=== PATIENT | male | born 1980 | race Two or more races ===

== ENCOUNTER 2023-08-19 19:05 | Emergency (ER) | payer OTHER ==
[~2023-08-19] VITALS: Ht 180.3 cm; Wt 95.2 kg
[2023-08-19 19:42] LABS: BASOPHILS ABSOLUTE AUTO 0.07 K/mm3 (0.00-0.23); BASOPHILS PERCENT AUTO 1 % (0-2); EOSINOPHILS ABSOLUTE AUTO 0.08 K/mm3 (0.00-0.68); EOSINOPHILS PERCENT AUTO 1 % (0-6); Hematocrit 49.8 % (37.0-53.0); Hemoglobin 18.2 g/dL (13.5-17.5); IMMATURE GRAN ABSOLUTE AUTO 0.04 K/mm3 (0.00-0.10); IMMATURE GRAN PERCENT AUTO 0 % (0-1); LYMPHOCYTES PERCENT AUTO 50 % (21-46); MONOCYTES ABSOLUTE AUTO 0.55 K/mm3 (0.16-1.47); MONOCYTES PERCENT AUTO 6 % (4-13); Mean Corpuscular HGB 31.1 pg (26.0-34.0); Mean Corpuscular HGB Conc 36.5 g/dL (31.5-36.5); Mean Corpuscular Volume 85 fL (80-100); Mean Platelet Volume 10.9 fL (9.1-12.4); NEUTROPHILS ABSOLUTE AUTO 3.93 K/mm3 (1.96-9.15); NEUTROPHILS PERCENT AUTO 42 % (41-73); Platelet Count 181 K/mm3 (150-400); RDW Coefficient Variation 12.6 % (11.7-14.2); RDW Standard Deviation 39.4 fL (35.1-46.3); Red Blood Cell Count 5.85 M/mm3 (4.30-5.90); White Blood Cell Count 9.37 K/mm3 (4.00-11.30)
[2023-08-19 20:19] LABS: Influenza A, PCR NEGATIVE (NEGATIVE); Influenza B, PCR NEGATIVE (NEGATIVE); Resp Syncytial Virus, PCR NEGATIVE (NEGATIVE); SARS-Cov-2 (COVID-19) PCR, MMC NEGATIVE (NEGATIVE)
[2023-08-19 20:33] LABS: Albumin, Blood 4.1 g/dL (3.4-5.0); Bilirubin, Total 0.7 mg/dL (0.1-1.0); Bun/Creatinine Ratio 23.1 (12.0-20.0); Creatinine, Blood 0.82 mg/dL (0.60-1.20); Potassium, Blood 3.9 mmol/L (3.5-5.5); Total Protein, Blood 8.1 g/dL (6.4-8.2)
[2023-08-20] MEDS ORDERED: CHLO25 PO (01:59)
[2023-08-20 02:00] VITALS: BP 122/97
== END 2023-08-20 02:09 | disposition home or self-care (01) ==
LOC: ER 19:05
PROVIDERS: Student in an Organized Health Care Education/Training Program
DX: K29.20 Alcoholic gastritis without bleeding (principal); F10.239 Alcohol dependence with withdrawal, unspecified; Y90.8 Blood alcohol level of 240 mg/100 ml or more
CPT/HCPCS: 0241U; 71046; 74177; 80053; 83690; 85025; 93005; 93010; 96374; 99284-25; A9270; J3360; J7121; Q9967

== ENCOUNTER 2023-12-02 16:24 | Inpatient (IN) | payer OTHER ==
[~2023-12-02] VITALS: Ht 180.3 cm; Wt 96.9 kg
[~2023-12-02 16:24] MED LIST: CHLO25 PO
[2023-12-02] MEDS ORDERED: NS 1,000 ML IV SCH ×3 (17:00→19:45)
[2023-12-02] MEDS ORDERED: Ondansetron HCl 2 MG / ML 2ML Vial IV ONE (17:05)
[2023-12-02 17:17] LABS: BASOPHILS ABSOLUTE AUTO 0.08 K/mm3 (0.00-0.23); BASOPHILS PERCENT AUTO 1 % (0-2); EOSINOPHILS ABSOLUTE AUTO 0.06 K/mm3 (0.00-0.68); EOSINOPHILS PERCENT AUTO 1 % (0-6); Hematocrit 49.1 % (37.0-53.0); Hemoglobin 17.8 g/dL (13.5-17.5); IMMATURE GRAN ABSOLUTE AUTO 0.01 K/mm3 (0.00-0.10); IMMATURE GRAN PERCENT AUTO 0 % (0-1); LYMPHOCYTES ABSOLUTE AUTO 1.43 K/mm3 (0.84-5.20); LYMPHOCYTES PERCENT AUTO 17 % (21-46); MONOCYTES ABSOLUTE AUTO 0.48 K/mm3 (0.16-1.47); MONOCYTES PERCENT AUTO 6 % (4-13); Mean Corpuscular HGB 31.1 pg (26.0-34.0); Mean Corpuscular HGB Conc 36.3 g/dL (31.5-36.5); Mean Corpuscular Volume 86 fL (80-100); Mean Platelet Volume 11.8 fL (9.1-12.4); NEUTROPHILS ABSOLUTE AUTO 6.37 K/mm3 (1.96-9.15); NEUTROPHILS PERCENT AUTO 76 % (41-73); Platelet Count 144 K/mm3 (150-400); RDW Standard Deviation 37.9 fL (35.1-46.3); Red Blood Cell Count 5.72 M/mm3 (4.30-5.90); White Blood Cell Count 8.43 K/mm3 (4.00-11.30)
[2023-12-02 17:49] LABS: Albumin/Globulin Ratio 1.2 (0.8-1.8); Bilirubin, Total 1.1 mg/dL (0.1-1.0); Bun/Creatinine Ratio 12.4 (12.0-20.0); Calcium, Blood 7.9 mg/dL (8.5-10.1); Creatinine, Blood 0.88 mg/dL (0.60-1.20); Globulin, Blood 3.2 g/dL (2.2-4.0); Potassium, Blood 3.9 mmol/L (3.5-5.5); Total Protein, Blood 7.2 g/dL (6.4-8.2)
[2023-12-02] MEDS ORDERED: Prochlorperazine Edisylate 10 mg Vial IV ONE (18:40)
[2023-12-02 18:55] LABS: International Normalized Ratio 2.45; Prothrombin Time Results 24.5 Sec (9.7-11.5)
[2023-12-02] MEDS ORDERED: ChlordiazePOXIDE 25 MG Cap PO PRN ×2 (18:55)
[2023-12-02] MEDS ORDERED: FentaNYL Citrate 50 MCG/ML 2 ML Injection IV PRN (18:55)
[2023-12-02] MEDS ORDERED: LORazepam 2 MG/ML 1ML Injection IV PRN ×2 (18:55)
[2023-12-02] MEDS ORDERED: LORazepam 2 MG/ML 1ML Injection IV ONE (19:00)
[2023-12-02] MEDS ORDERED: FentaNYL Citrate 50 MCG/ML 2 ML Injection IV ONE (19:00)
[2023-12-02] MEDS ORDERED: Nicotine 21 MG PATCH TOP ONE (19:15)
[2023-12-02 19:23] LABS: Thyroid Stimulating Hormone 0.832 uIU/mL (0.360-4.800)
[2023-12-02 19:28] LABS: U Amphetamine Screen Not Detected; U Barbituate Screen Not Detected; U Benzodiazapine Screen Not Detected; U Buprenorphine Screen Not Detected; U Cannabinoids Screen Not Detected; U Cocaine Screen Not Detected; U Methadone Screen Not Detected; U Methamphetamine Screen Not Detected; U Opiates Screen Not Detected; U Oxycodone Screen Not Detected; U Phencyclidine Screen Not Detected
[2023-12-02] MEDS ORDERED: Ondansetron HCl 2 MG / ML 2ML Vial IV PRN (19:45)
[2023-12-02] MEDS ORDERED: Pantoprazole Sodium 40 MG Injection IV SCH (20:00)
[2023-12-02 21:05] VITALS: BP 139/88
--- NOTE | 2023-12-02 21:50 | NUR ---
ARRIVAL TO UNIT AFTER RECEIVING REPORT FROM [facility] RN, PATIENT ARRIVED TO UNIT VIA ED [facility] AT APPROX 2100. PATIENT ABLE TO STAND AND AMBULATE FROM ED [facility] TO BED WITH SBA FROM STAFF FOR CORD, DEVICE MANAGEMENT. PATIENT ALERT AND ORIENTED X4. SOFT, SLURRED SPEECH NOTED. DIFFICULTY ANSWERING QUESTIONS, FOLLOWING CONVERSATION. SLIGHT VISIBLE TREMOR WITH REPORT OF MILD NAUSEA, HEADACHE. CIWA OF 6. ADMINISTERED 50MG PO LIBRIUM PER EMAR. PERRLA. MOVES ALL EXTREMITIES EQUALLY. PATIENT IS A CURRENT EVERYDAY 1/2PPD SMOKER. NICOTINE PATCH IN PLACE. EDUCATED ON FACILITY's IGNITION, SMOKING POLICY. PATIENT DENIES HAVING ANY LIGHTERS OR OTHER IGNITION SOURCES. TELEMETRY SHOWING SINUS 90s. BP STABLE, SBP 130s. DENIES CHEST PAIN, PRESSURE. CURRENTLY TOLERATING ROOM AIR, SATs >90%. ON 3L VIA NC AT ARRIVAL. RESPIRATIONS EVEN, UNLABORED. REPORTS DECREASED ABDOMINAL PAIN SINCE ARRIVAL TO ED. NORMOACTIVE BOWEL TONES AUSCULTATED. TOLERATING WATER WITH NO INCREASE IN NAUSEA OR EPISODE OF VOMITING. CALL LIGHT IN REACH. BED ALARM ON. SEIZURE PADS IN PLACE. IVF INFUSING PER EMAR.
[2023-12-02 23:38] VITALS: BP 137/89
[2023-12-03] MEDS ORDERED: Insulin Human Lispro 100 Units/ML 3ML Syringe SC SCH
[2023-12-03 03:48] VITALS: BP 138/90
[2023-12-03 03:59] LABS: Hematocrit 44.6 % (37.0-53.0); Mean Corpuscular HGB 31.3 pg (26.0-34.0); Mean Corpuscular HGB Conc 35.9 g/dL (31.5-36.5); Mean Corpuscular Volume 87 fL (80-100); Platelet Count 91 K/mm3 (150-400); RDW Coefficient Variation 11.9 % (11.7-14.2); RDW Standard Deviation 38.5 fL (35.1-46.3); Red Blood Cell Count 5.11 M/mm3 (4.30-5.90)
[2023-12-03 04:33] LABS: Magnesium, Blood 1.7 mg/dL (1.6-2.4)
[2023-12-03 04:36] LABS: Albumin, Blood 3.4 g/dL (3.4-5.0); Albumin/Globulin Ratio 1.4 (0.8-1.8); Bilirubin, Total 1.4 mg/dL (0.1-1.0); Calcium, Blood 7.3 mg/dL (8.5-10.1); Creatinine, Blood 0.8 mg/dL (0.60-1.20); Globulin, Blood 2.5 g/dL (2.2-4.0); Potassium, Blood 3.9 mmol/L (3.5-5.5); Total Protein, Blood 5.9 g/dL (6.4-8.2)
[2023-12-03 04:53] LABS: International Normalized Ratio 3.4; Prothrombin Time Results 33.3 Sec (9.7-11.5)
--- NOTE | 2023-12-03 05:28 | NUR ---
SHIFT SUMMARY NO ACUTE EVENTS SINCE ARRIVAL TO UNIT. PATIENT SLEPT THROUGHOUT SHIFT. EASILY AROUSABLE WITH VERBAL STIMULI. COOPERATIVE WITH CARE, COMMUNICATES NEEDS EFFECTIVELY. CIWAs 3-7. PATIENT REPORTING MILD HEADACHE, NAUSEA (NO VOMITING), AND EXPERIENCING MILD BUE TREMOR. MEDICATED PER EMAR WITH A TOTAL OF 75MG OF PO LIBRIUM. TELEMETRY SHOWING SINUS/SINUS TACH 90s-110s. BP STABLE. DENIES CHEST PAIN, PRESSURE. REMAINS ON ROOM AIR, SATs >90%. RESPIRATIONS EVEN, UNLABORED. DENIES INCREASED ABDOMINAL PAIN. UP TO RESTROOM TO VOID WITH SBA FROM STAFF. REPOSITIONS HIMSELF INDEPENDENTLY IN BED. NO BM THIS SHIFT. CALL LIGHT IN REACH. BED ALARM ON. WILL CONTINUE TO MONITOR AND REPORT TO ONCOMING RN.
[2023-12-03 08:04] VITALS: BP 132/99
[2023-12-03] MEDS ORDERED: Thiamine HCl 100 MG in NS 50 ML IV SCH (09:00)
[2023-12-03] MEDS ORDERED: Folic Acid 1 MG in NS 50 ML IV SCH (09:00)
[2023-12-03] MEDS ORDERED: Enoxaparin 40 MG/0.4 ML SYR SC SCH (09:00)
[2023-12-03 12:42] VITALS: BP 155/109
[2023-12-03] MEDS ORDERED: Thiamine HCl 100 MG Tab PO SCH (14:00)
[2023-12-03] MEDS ORDERED: Nicotine 21 MG PATCH TOP SCH (15:00)
[2023-12-03 16:21] VITALS: BP 158/110
--- NOTE | 2023-12-03 16:42 | NUR ---
SHIFT SUMMARY: PT HAS BEEN ALERT, OR EASILY WAKES TO VERBAL, ORIENTED x4, ABLE TO ANSWER QUESTIONS APPROPRIATELY AND MAKE NEEDS KNOWN. PT MEDICATED PER [facility] PROTOCOL T/OUT SHIFT, PT HAS BEEN NAUSEATED, TREMULOUS, DIAPHORETIC, ANXIOUS, SENSITIVE TO LIGHT AND SOUND. PT DENIES SOB, O2 SATS >92% ON RA. PT DENIES CHEST PAIN/PRESSURE. SR ON MONITOR W/RATE 80s-90s. PT AMBULATING TO/FROM RESTROOM W/SBA, REPOSITIONING SELF IN BED. PAIN CONTINUES TO LUQ AND LLQ, DENIES MEDICATION AT THIS TIME. CURRENTLY, PT IS RESTING QUIETLY IN ROOM. WILL CONTINUE TO MONITOR AND TREAT ACCORDINGLY UNTIL CHANGE OF SHIFT.
[2023-12-03 19:37] VITALS: BP 147/102
[2023-12-03 23:44] VITALS: BP 147/94
[2023-12-04 04:46] LABS: BASOPHILS ABSOLUTE AUTO 0.04 K/mm3 (0.00-0.23); BASOPHILS PERCENT AUTO 1 % (0-2); EOSINOPHILS ABSOLUTE AUTO 0.29 K/mm3 (0.00-0.68); EOSINOPHILS PERCENT AUTO 5 % (0-6); Hematocrit 40.4 % (37.0-53.0); IMMATURE GRAN ABSOLUTE AUTO 0.01 K/mm3 (0.00-0.10); IMMATURE GRAN PERCENT AUTO 0 % (0-1); LYMPHOCYTES ABSOLUTE AUTO 1.31 K/mm3 (0.84-5.20); LYMPHOCYTES PERCENT AUTO 22 % (21-46); MONOCYTES ABSOLUTE AUTO 0.27 K/mm3 (0.16-1.47); MONOCYTES PERCENT AUTO 5 % (4-13); Mean Corpuscular HGB 32.1 pg (26.0-34.0); Mean Corpuscular HGB Conc 37.1 g/dL (31.5-36.5); Mean Corpuscular Volume 87 fL (80-100); Mean Platelet Volume 12.4 fL (9.1-12.4); NEUTROPHILS ABSOLUTE AUTO 4.07 K/mm3 (1.96-9.15); NEUTROPHILS PERCENT AUTO 68 % (41-73); Platelet Count 76 K/mm3 (150-400); RDW Coefficient Variation 11.9 % (11.7-14.2); Red Blood Cell Count 4.67 M/mm3 (4.30-5.90); White Blood Cell Count 5.99 K/mm3 (4.00-11.30)
[2023-12-04 05:01] VITALS: BP 134/87
[2023-12-04 05:55] LABS: Albumin, Blood 3.1 g/dL (3.4-5.0); Albumin/Globulin Ratio 1.3 (0.8-1.8); Bilirubin, Total 3.6 mg/dL (0.1-1.0); Bun/Creatinine Ratio 11.9 (12.0-20.0); Calcium, Blood 7.6 mg/dL (8.5-10.1); Creatinine, Blood 0.67 mg/dL (0.60-1.20); Globulin, Blood 2.3 g/dL (2.2-4.0); Potassium, Blood 3.3 mmol/L (3.5-5.5); Total Protein, Blood 5.4 g/dL (6.4-8.2)
--- NOTE | 2023-12-04 06:38 | NUR ---
SHIFT SUMMARY PATIENT ALERT AND ORINETED X4. INDEPENDENT IN HIS ROOM. MEDICATED ONCE PER EMAR FOR A CIWA OF 9. PATIENT OTHERWISE SLEPT ALL NIGHT. PATIENT ON ROOM AIR WITH SPO2 >90%, HAD NO COMPLAINTS OF SHORTNESS OF BREATH. VITAL SIGNS STABLE, SINUS RHYTHM ON TELE. WILL CONTINUE TO MONITOR. CALL LIGHT WITHIN REACH.
[2023-12-04] MEDS ORDERED: Potassium Chloride 40 MEQ in NS 250 ML IV ONE (07:15)
[2023-12-04 08:03] LABS: IMMATURE RETIC FRACTION 3.9 % (2.3-16.0); RETIC HGB EQUIVALENT 37.9 pg (28.20-36.60); RETICULOCYTE ABSOLUTE 0.0474 M/mm3 (0.0200-0.1100); RETICULOCYTE COUNT PERCENT 1.03 % (0.50-2.50)
[2023-12-04 08:21] VITALS: BP 161/111
[2023-12-04] MEDS ORDERED: Thiamine HCl 100 MG Tab PO SCH (09:00)
[2023-12-04] MEDS ORDERED: Folic Acid 1 MG TAB PO SCH (09:00)
[2023-12-04] MEDS ORDERED: ChlordiazePOXIDE 25 MG Cap PO PRN (09:50)
[2023-12-04] MEDS ORDERED: FLUoxetine HCL 20 MG CAP PO SCH (10:00)
[2023-12-04] MEDS ORDERED: BusPIRone HCl 10 MG Tab PO SCH (10:00)
[2023-12-04] MEDS ORDERED: Gabapentin 300 MG Cap PO ONE (10:00)
[2023-12-04] MEDS ORDERED: BUSP10 PO (10:58)
[2023-12-04] MEDS ORDERED: CHLO25 PO (10:58)
[2023-12-04] MEDS ORDERED: NICO21TP TOP (10:59)
[2023-12-04] MEDS ORDERED: Prozac20 MG PO (10:59)
[2023-12-04] MEDS ORDERED: FOLI1 PO (10:59)
[2023-12-04] MEDS ORDERED: VITAMIN B-1100 MG PO (11:00)
[2023-12-04] MEDS ORDERED: ACAMPROSATE CA333 MG PO (11:00)
[2023-12-04 11:50] VITALS: BP 151/98
--- NOTE | 2023-12-04 13:22 | NUR ---
LOUD NOISE HEARD COMING FROM PT'S RESTROOM AT APROX 1145. THIS RN, MONUMENT SETTER AND CLINICAL COORDINATOR ENTERED PT'S RESTROOM TO FIND HIM STANDING WITH HIS PANTS HALF DOWN. PT IS INSTRUCTED TO SIT DOWN ON TOILET. ON ASSESSMENT, PT HAS NO OBVIOUS INJURIES NOTED AND PT DENIES ANY INJURIES. PT STATES THAT HE WAS PULLING DOWN HIS PANTS TO USE THE TOILET, FELL FORWARD AND HIT THE MIDDLE OF HIS FORHEAD ON THE BACK OF THE CLOSED RESTROOM DOOR. PT DENIES FALLING TO THE FLOOR OR HITTING ANYTHING ELSE IN THE RESTROOM. 50 CENT SIZED AREA OF REDNESS NOTED TO THE CENTER OF HIS FORHEAD, NO BLEEDING, HEMATOMA OR SWELLING NOTED. PT DENIES PAIN. PT ASSESSED AND DR COBB NOTIFIED, NO NEW ORDERS. PT EDUCATED ON FALL RISK AND INSTRUCTED TO CALL STAFF WHEN HE NEEDS TO GET OOB AND WAIT FOR STAFF ASSISTANCE. PT DID HAVE CALL LIGHT IN REACH PRIOR TO GETTING UP TO THE RESTROOM AND UNDERSTOOD HOW TO USE IT. BED ALARM NOW ON. PT VERBALIZED UNDERSTANDING. CALL LIGHT IN REACH. WILL CONTINUE TO MONITOR.
--- NOTE | 2023-12-04 15:15 | NUR ---
Patient is alert and oriented. We talk at length about his personal struggles, his family unit complications and his past painful incidents. He is raw, honest and tearful at times as we unpack some of his challenges and work on a plan to move toward greater health of spirit, mind and body. Patient responded well and showed signs of increased clarity of direction and deeper peace within himself. I will continue to remain available to patient and family.
--- NOTE | 2023-12-04 15:23 | NUR ---
SHIFT SUMMARY/DISCHARGE SUMMARY: ASSUMED CARE W PRIMARY RN AT 0700. PT A/Ox4, NEURO INTACT. VSS, HR 70s ON TELE. CRACKLES ON R UPPER AND LOWER LOBE ON AUSCULTATION. PT DENIES CHEST PN/PRESSURE. PT ABLE TO MAKE NEEDS KNOWN AND EXPRESSES HE WANTS TO GO HOME TODAY D/T CONCERNS OF MISSING WORK. PT STATES HE DOESN'T HAVE PTO TO COVER FOR HIS ABSENCE AT WORK. DURING PROVIDER ASSESSMENT, PT EXPRESSED INTEREST IN QUITTING ALCOHOL AND THEY DISCUSSED MEDICATIONS OPTIONS W THE PT AND HELPED HIM ESTABLISHED A PCP. PT HAS ORDERS TO BE D/C AT 1600 TODAY DISCUSSED BY PT AND PROVIDER. 1145 - PT HAD A FALL INCIDENT IN THE BATHROOM. PT STATES HE WAS SITTING ON THE TOILET, HE REACHED OUT TO PUT HIS PANTS ON TRYING TO AVOID CORDS AND LINES AND HE FELL FORWARD HITTING HIS FOREHEAD ON THE BATHROOM DOOR. THE PT DENIES LOSING CONSCIOUSNESS, DENIES DIZZINESS OR NAUSEA BEFORE THE INCIDENT. PT ABLE TO STAND ON HIS OWN W/O DIFFICULTY. VSS. PT DENIES OTHER INJURIES. EDUCATED PT ON USING CALL LIGHT FOR HELP, CALL LIGHT WITHIN REACH. BED ALARM PLACED FOR PT SAFETY.
[2023-12-04 15:43] VITALS: BP 141/89
--- NOTE | 2023-12-04 16:12 | NUR ---
1410- NO CHANGES IN PT CONDITION, PT LEFT AMA AT THIS TIME. IV X 2 AND TELE REMOVED. MEDICATION LIST AND WRITTEN PRESCRIPTIONS PROVIDED BY DR ANTOINETTE SOSA. INSTRUCTIONS FOR FOLLOW UP W DR CARBAJAL AT [facility] GIVEN. PT LEFT THE HOSPITAL AMBULATORY, TO THE CAR OF HIS FRIEND, WHOM HE STATED WAS DRIVING HIM HOME.
[2023-12-05 09:05] LABS: HEPATITIS A ANTIBODY, IGM Negative (Negative); HEPATITIS B CORE ANTIBODY, IGM Negative (Negative); HEPATITIS B SURFACE ANTIGEN Negative (Negative); HEPATITIS C AB CIA INTERP Negative (Negative); HEPATITIS C ANTIBODY CIA INDEX 0.09 IV
[2023-12-05 20:46] LABS: HAPTOGLOBIN 71 mg/dL (30-200)
== END 2023-12-04 16:10 | disposition left against medical advice (07) | DRG 442 ==
LOC: ER 16:24 → PCU 20:25
PROVIDERS: Family Medicine; Nurse Practitioner Acute Care; Student in an Organized Health Care Education/Training Program; ADMIT Emergency Medicine
DX: K76.0 Fatty (change of) liver, not elsewhere classified (principal); F10.239 Alcohol dependence with withdrawal, unspecified; K70.10 Alcoholic hepatitis without ascites; Y90.9 Presence of alcohol in blood, level not specified; R73.9 Hyperglycemia, unspecified; Z71.41 Alcohol abuse counseling and surveillance of alcoholic
CPT/HCPCS: 36415; 71046; 74177; 76705; 80053; 80074; 82248; 82550; 82947; 83010; 83036; 83615; 83690; 83735; 83880; 84443; 84484; 85025; 85027; 85045; 85060; 85610; 86880; 93005; 93010; 96361; 96374-59; 96375; 99285-25; A9270; C9113; G0480; J0780; J2060; J2405; J3010; J3411; J3480; J7030; J7050; Q9967